=== PATIENT | female | born 1965 ===

== ENCOUNTER 2020-05-21 06:00 | Outpatient (RCR) | payer OTHER, SELFPAY | END 2020-05-22 23:59 | disposition home or self-care (01) | LOC: SPT 06:00 | PROVIDERS: PCP Family Medicine; Referring Provider Nurse Practitioner; Visit Provider Nurse Practitioner | DX: M79.89 Other specified soft tissue disorders (principal); I83.893 Varicose veins of bilateral lower extremities with other complications | CPT/HCPCS: 97161 ==

== ENCOUNTER → 2023-02-10 10:49 | Outpatient (BNVA) | payer OTHER, SELFPAY | PROVIDERS: PCP Family Medicine; Visit Provider Internal Medicine Rheumatology | DX: M19.90 Unspecified osteoarthritis, unspecified site (principal); Z79.899 Other long term (current) drug therapy; Z11.59 Encounter for screening for other viral diseases; M45.6 Ankylosing spondylitis lumbar region; Z11.1 Encounter for screening for respiratory tuberculosis | CPT/HCPCS: 36415; 72100; 73130; 73630; 80076; 82306; 82565; 83520; 85025; 85651; 86140; 86200; 86431; 86480; 86704; 86803; 86812; 87340 ==